=== PATIENT | male | born 1970 | race Caucasian/White ===

== ENCOUNTER 2017-08-30 17:15 | Emergency (ER) | payer OTHER ==
[~2017-08-30] VITALS: Ht 185.4 cm; Wt 87.1 kg
[~2017-08-30 17:15] MED LIST: GABA-113 PO; HYDR25CA PO; ZOLP10TA PO; ZYP20 PO
[2017-08-30 17:20] VITALS: TEMP 36.4; Ht 185.4 cm; Wt 87.1 kg
[2017-08-30] MEDS ORDERED: NICOTINE 14 MG/24 HR TDSY TD STA (17:40)
[2017-08-30 18:06] LABS: HEMATOCRIT 43.3 % (42-52); HEMOGLOBIN 15.2 g/dL (14.0-18.0); MEAN CELL VOLUME 86.6 fL (80-100); MEAN CORPUSCULAR HEMOGLOBIN 30.4 pg (25-34); MEAN CORPUSCULAR HGB CONC 35.1 g/dl (32-36); PLATELET COUNT 242 K/uL (130-400); RED CELL DISTRIBUTION WIDTH CV 13.3 % (11.5-14.5); RED CELL DISTRIBUTION WIDTH SD 41.7 fL (36.4-46.3); WHITE BLOOD COUNT 10.53 K/uL (4.8-10.8)
[2017-08-30] MEDS ORDERED: SYN50 PO (18:07)
[2017-08-30] MEDS ORDERED: FENOFIBRATE PO (18:08)
[2017-08-30 18:24] LABS: ALBUMIN 3.9 gm/dl (3.4-5.0); ALT/SGPT 26 U/L (12-78); AST/SGOT 9 U/L (15-37); BLOOD UREA NITROGEN 10 mg/dl (7-18); CALCIUM 8.9 mg/dl (8.5-10.1); CARBON DIOXIDE 28 mmol/L (21-32); CREATININE 1.02 mg/dl (0.60-1.40); GLUCOSE 101 mg/dl (70-99); POTASSIUM 3.5 mmol/L (3.5-5.1); SODIUM 141 mmol/L (136-145)
[2017-08-30 18:34] LABS: ALKALINE PHOSPHATASE 87 U/L (45-117)
--- NOTE | 2017-08-30 22:37 | EMERGENCY ROOM VISIT NOTE ---
History Report prepared by Sharad: Maryan Maradiaga Under the Supervision of: Dr. Johnathan Owens M.D. First contact with patient: 17:34 Chief Complaint: MENTAL HEALTH EVALUATION Stated Complaint: VOICES,PARANOID History of Present Illness The patient is a 47 year old male who presents to the Emergency Room with complaints of increased paranoia and increased voices in his head. He notes the voices are not telling him to do anything illegal. He is currently on 100 or 120 mg of Effexor. He also has hypothyroidism, high blood pressure, and high cholesterol. He denies any fevers. Has not had a bowel movement in about a day and a half. The patient reports he smokes a pack and a half a day. He denies any recent illness. He states that his paranoia and hallucinations are getting out of hand and he thinks he needs to be hospitalized. He was evaluated by [facility] prior to arrival and sent here. Source of History: patient History Limited By: AMS Onset: past week Position: other (global ) Symptom Intensity: moderate Quality: other (paranoia) Timing: constant Associated Symptoms: No fevers Note: No bowel movements for a day in a half; auditory hallucinations Review of Systems See HPI for pertinent positives & negatives. A total of 10 systems reviewed and were otherwise negative. Past Medical & Surgical Medical Problems: (1) Anxiety (2) Auditory hallucinations (3) Bipolar disorder (4) Change in mental status (5) Change in mental status (6) Depression (7) Depression with suicidal ideation (8) Depression with suicidal ideation (9) Drug overdose (10) High blood pressure (11) Hyperlipemia (12) Hypothyroidism (13) Intentional Zyprexa overdose (14) Medication overdose (15) Mood disorder (16) Polysubstance dependence (17) possible seizure (18) Schizoaffective disorder (19) Schizoaffective disorder, depressive type (20) Seizure-like activity (21) Seizure-like activity (22) Stimulant use disorder (23) Suicidal ideation (24) Suicidal ideation (25) Suicidal ideation (26) Suicidal ideation (27) Suicide attempt by drug ingestion (28) Tobacco dependency In my clinical judgment this beneficiary meets acute admission criteria, established by [facility], that includes being hospitalized through two midnights. Family History Cancer FHx: bipolar disorder Heart disease Hypertension Social History Smoking Status: Current Every Day Smoker (pack and a half a day ) Alcohol Use: occasionally Drug Use: other Marital Status: in relationship Housing Status: lives with significant other Occupation Status: unemployed Current/Historical Medications Scheduled Gabapentin (Neurontin), 300 MG PO TID Levothyroxine Sodium (Synthroid), 50 MCG PO DAILY [Fenofibrate], 1 DOSE PO DAILY Allergies Coded Allergies: Tramadol (Verified Allergy, Intermediate, RASH, 04/18/16) Sulfa Antibiotics (Verified Allergy, Unknown, UNKNOWN RXN TO SULFA DRUGS, 04/18/16) Physical Exam Vital Signs Date Time Temp Pulse Resp B/P (MAP) Pulse Ox O2 Delivery O2 Flow Rate FiO2 08/30/17 17:20 36.4 104 20 138/91 Room Air Physical Exam Constitutional: Vital signs reviewed. Eyes: Pupils are equal round reactive to light. Conjunctiva are noninjected. ENT: Pharynx is clear without erythema or exudate. Mucous membranes are moist. Neck supple without meningeal signs. Respiratory: Clear to auscultation bilaterally. Breath sounds are equal bilaterally. Cardiovascular: Regular rate and rhythm. No rubs or gallops. GI: Soft, nondistended and nontender. Bowel sounds are present. Musculoskeletal: No peripheral edema. Integumentary: No cyanosis. Neurological: The patient is awake and alert. No focal deficits. Psychiatric: He is not tearful or depressed appearing. Medical Decision & Procedures Laboratory Results 08/30/17 17:50 08/30/17 17:50 Test 08/30/17 17:50 Red Blood Count 5.00 M/uL (4.7-6.1) Mean Corpuscular Volume 86.6 fL (80-100) Mean Corpuscular Hemoglobin 30.4 pg (25-34) Mean Corpuscular Hemoglobin Concent 35.1 g/dl (32-36) RDW Standard Deviation 41.7 fL (36.4-46.3) RDW Coefficient of Variation 13.3 % (11.5-14.5) Mean Platelet Volume 11.0 fL (7.4-10.4) Anion Gap 6.0 mmol/L (3-11) Est Creatinine Clear Calc Drug Dose 101.2 ml/min Estimated GFR () 101.0 Estimated GFR (Non- 87.1 BUN/Creatinine Ratio 10.2 (10-20) Calcium Level 8.9 mg/dl (8.5-10.1) Total Bilirubin 0.2 mg/dl (0.2-1) Direct Bilirubin < 0.1 mg/dl (0-0.2) Aspartate Amino Transf (AST/SGOT) 9 U/L (15-37) Alanine Aminotransferase (ALT/SGPT) 26 U/L (12-78) Alkaline Phosphatase 87 U/L (45-117) Total Protein 7.0 gm/dl (6.4-8.2) Albumin 3.9 gm/dl (3.4-5.0) Thyroid Stimulating Hormone (TSH) 0.854 uIu/ml (0.300-4.500) Salicylates Level 2.1 mg/dl (2.8-20) Urine Opiates Screen NEG (NEG) Urine Methadone, Qualitative NEG (NEG) Acetaminophen Level < 2 ug/ml (10-30) Urine Barbiturates NEG (NEG) Urine Phencyclidine (PCP) Level NEG (NEG) Ur Amphetamine/Methamphetamine NEG (NEG) MDMA (Ecstasy) Screen NEG (NEG) Urine Benzodiazepines Screen NEG (NEG) Urine Cocaine Metabolite NEG (NEG) Urine Marijuana (THC) NEG (NEG) Ethyl Alcohol mg/dL < 3.0 mg/dl (0-3) Laboratory results as reviewed by me. Medications Administered Medications (Trade) Dose Ordered Sig/Félix Route Start Time Stop Time Status Last Admin Dose Admin Nicotine (Nicoderm Cq 14MG Patch) 1 patch NOW STAT TD 08/30/17 17:40 08/30/17 17:43 DC 08/30/17 17:50 1 PATCH ED Course 173: The patient was evaluated in room A8. A complete history and physical exam was performed. 1739: Ordered Nicotine 1 patch TD 2048: Dr. Chen, [facility] was paged. 7280: Ordered Gabapentin 300 mg PO Medical Decision This is a 47-year-old male who presents for mental health evaluation. I did perform a limited focused review of portions of the patient's old chart on the electronic medical record. The patient has had no recent pertinent visits to this hospital. I did evaluate the patient as noted above. The patient is presenting with increased paranoia and auditory hallucinations. He denies command hallucinations. He denies any homicidal or suicidal ideation. He does have a history of schizoaffective disorder. He was seen by [facility] and referred here after their evaluation. He was given a nicotine patch per his request. I did order and review the patient's blood work as noted in the electronic medical record. The patient was medically cleared. The patient was evaluated by the mental health case folder. The patient wants to sign in voluntarily. Currently bed search is underway. I did treat him with his regular dose of gabapentin. The patient was signed out to Dr. Jorden Polanco. Medication Reconcilliation Current Medication List: was personally reviewed by me Blood Pressure Screening Patient's blood pressure: Elevated blood pressure Blood pressure disposition: Did not require urgent referral Impression Primary Impression: Schizoaffective disorder Additional Impression: Paranoia Scribe Attestation The scribe's documentation has been prepared under my direct and personally reviewed by me in its entirety. I confirm that the note above accurately reflects all work, treatment, procedures, and medical decision making performed by me. Departure Information Dispostion Still a Patient Referrals Walter Ventura, D.O. (PCP) Forms HOME CARE DOCUMENTATION FORM, IMPORTANT VISIT INFORMATION Patient Instructions [facility] Problem Qualifiers Primary Impression: Schizoaffective disorder Schizoaffective disorder type: unspecified Qualified Codes: F25.9 - Schizoaffective disorder, unspecified
[2017-08-30] MEDS ORDERED: GABAPENTIN 300 MG CAP PO STA (23:50)
--- NOTE | 2017-08-31 03:29 | EMERGENCY ROOM VISIT NOTE ---
ED Visit Note First contact with patient: 03:27 I saw this patient at signout from Dr. Owens. The patient was initially requesting inpatient psychiatric care. After being in the department for a couple of hours, the patient seemed to have changed his mind and would like to be discharged home. He states that he is feeling much better and feels satisfied that he will be able to get his medications picked up today. Those medications that he describes are BuSpar and a thyroid replacement medication. The patient is not actively suicidal or homicidal. He feels very optimistic about the future. He has outpatient follow-up arranged. [facility]
[2017-08-31 04:09] VITALS: BP 144/87; PULSE 98; O2SAT 98
== END 2017-08-31 04:11 | disposition home or self-care (01) ==
LOC: C.EDB 17:17 → C.EDA 08-31 04:11
DX: F25.9 Schizoaffective disorder, unspecified (principal); F31.9 Bipolar disorder, unspecified; E03.9 Hypothyroidism, unspecified; I10 Essential (primary) hypertension; E78.00 Pure hypercholesterolemia, unspecified; Z79.899 Other long term (current) drug therapy; Z81.8 Family history of other mental and behavioral disorders; Z82.49 Family history of ischemic heart disease and other diseases of the circulatory system; F17.200 Nicotine dependence, unspecified, uncomplicated